=== PATIENT | female | born 1965 | race Caucasian/White ===

== ENCOUNTER 2024-08-27 22:49 | Emergency (ER) | payer MEDICAID ==
[~2024-08-27] VITALS: Ht 152.4 cm; Wt 50.0 kg
[2024-08-27 22:53] VITALS: O2SAT 98
[2024-08-28] MEDS: QUETIAPINE FUMARATE 25MG TABLET PO SCH (00:09)
[2024-08-28 01:45] VITALS: BP 138/77; PULSE 79; RESP 16; TEMP 36.8; O2SAT 98
== END 2024-08-28 01:54 | disposition home or self-care (01) ==
LOC: ER 22:49
DX: R45.1 Restlessness and agitation (principal); E78.00 Pure hypercholesterolemia, unspecified; F20.9 Schizophrenia, unspecified; F32.A Depression, unspecified; I10 Essential (primary) hypertension; F41.9 Anxiety disorder, unspecified; Z79.899 Other long term (current) drug therapy
CPT/HCPCS: 99283